=== PATIENT | male | born 1970 | race Caucasian/White ===

== ENCOUNTER 2018-03-03 03:10 | Emergency (ER) | payer OTHER ==
[2018-03-03] MEDS ORDERED: ONDANSETRON 4 MG/2 ML VIAL IVP ONE (03:18)
[2018-03-03] MEDS ORDERED: KETOROLAC 30 MG/1 ML SDV IVP ONE (03:18)
[2018-03-03] MEDS ORDERED: NS 1,000 ML IV ONE ×2 (03:18)
[2018-03-03] MEDS ORDERED: HYDROmorphONE/DILAUDID 2 MG/ML INJ IVP ONE (03:22)
[2018-03-03] MEDS ORDERED: HYDROmorphONE/DILAUDID 1 MG/ML INJ ONE (03:23)
--- NOTE | 2018-03-03 03:24 | EDPHY ---
H & P Stated Complaint: LUQ pain-L back Time Seen by Provider: 03/03/18 03:12 HPI/ROS: HPI The patient presents with left-sided upper abdominal and back pain which began at 1:45 a.m. And awoke him from sleep. The pain is severe, achy in nature, does not radiate, is associated with feeling that he needs to have a bowel movement. He does not have any nausea or vomiting. He has no prior history of similar. He does have a history of a left-sided back injury of some sort. REVIEW OF SYSTEMS Constitutional: No fever, no chills. Eyes: No discharge. ENT: No sore throat. Cardiovascular: No chest pain, no palpitations. Respiratory: No cough, no shortness of breath. Gastrointestinal: No abdominal pain, no vomiting. Genitourinary: No hematuria. Musculoskeletal: No back pain. Skin: No rashes. Neurological: No headache. PMHx: Healthy Soc Hx: Lives at home PHYSICAL General Appearance: Alert, uncomfortable appearing Eyes: Pupils equal and round no pallor or injection ENT, Mouth: Mucous membranes moist Respiratory: There are no retractions, lungs are clear to auscultation Cardiovascular: Regular rate and rhythm Gastrointestinal: Abdomen is soft and non-tender, no masses, bowel sounds normal Neurological: A&O, moves all extremities Skin: Warm and dry, no rashes Musculoskeletal: Neck is supple non tender Extremities: symmetrical, full range of motion Psychiatric: Patient is oriented X 3, there is no agitation Source: Patient Exam Limitations: No limitations - Personal History Current Tetanus Diphtheria and Acellular Pertussis (TDAP): Yes - Medical/Surgical History Hx Asthma: No Hx Chronic Respiratory Disease: No Hx Diabetes: No Hx Cardiac Disease: No Hx Renal Disease: No Hx Cirrhosis: No Hx Alcoholism: No Hx HIV/AIDS: No Hx Splenectomy or Spleen Trauma: No Other PMH: ortho surgeries - Social History Smoking Status: Never smoked Constitutional: Initial Vital Signs Temperature (C) 36.5 C 03/03/18 03:14 Heart Rate 64 03/03/18 03:14 Respiratory Rate 16 03/03/18 03:14 Blood Pressure 157/108 H 03/03/18 03:14 O2 Sat (%) 99 03/03/18 03:14 O2 Delivery Mode Room Air Allergies/Adverse Reactions: No Known Allergies Allergy (Unverified 03/03/18 03:13) Home Medications: Medication Instructions Recorded Tamsulosin HCl [Flomax 0.4 MG (*)] 0.4 mg PO DAILY #10 cap 03/03/18 oxyCODONE HCL/ACETAMINOPHEN 1 each PO Q6H PRN #8 tablet 03/03/18 [Percocet 5-325 mg Tablet] Medical Decision Making - Diagnostics Imaging Results: CT abdomen pelvis without IV contrast demonstrates left-sided ureterolithiasis with hydroureter and hydronephrosis, discussed with Dr. Winkler. Imaging: Discussed imaging studies w/ callisthenics instructor Radiologist, I viewed and interpreted images myself Differential Diagnosis: 47-year-old male with left-sided abdominal and flank pain for the last 1 hr. Differential diagnosis includes ureterolithiasis, pyelonephritis, pancreatitis. In the emergency department, patient received IV fluids, pain medication with nearly complete resolution in his symptoms. Labs were checked and did reveal hematuria, thus CT scan of his abdomen pelvis was ordered which did demonstrate a 4 mm distal ureteral kidney stone. I feel this is likely the cause of his symptoms. He felt better while in the emergency department. He was counseled on ureterolithiasis. He will be discharged home. - Data Points Laboratory Results: Laboratory Results 03/03/18 03:20 03/03/18 03:20 Medications Given: Discontinued Medications Hydromorphone HCl (Dilaudid) 1 mg IVP EDNOW ONE Stop: 03/03/18 03:23 Last Admin: 03/03/18 03:31 Dose: 1 mg Sodium Chloride (Ns) 1,000 mls @ 0 mls/hr IV EDNOW ONE; Wide Open PRN Reason: Protocol Stop: 03/03/18 03:19 Last Admin: 03/03/18 03:28 Dose: 1,000 mls Sodium Chloride (Ns) 1,000 mls @ 0 mls/hr IV EDNOW ONE; Wide Open PRN Reason: Protocol Stop: 03/03/18 03:19 Last Admin: 03/03/18 03:32 Dose: 1,000 mls Ketorolac Tromethamine (Toradol) 15 mg IVP EDNOW ONE Stop: 03/03/18 03:19 Last Admin: 03/03/18 03:27 Dose: 15 mg Ondansetron HCl (Zofran) 4 mg IVP EDNOW ONE Stop: 03/03/18 03:19 Last Admin: 03/03/18 03:28 Dose: 4 mg Ondansetron HCl (Zofran Odt 4 Mg Prepack#2) 1 btl TAKEHOME EDNOW ONE Stop: 03/03/18 04:32 Last Admin: 03/03/18 04:40 Dose: 1 btl Oxycodone/Acetaminophen (Percocet 5/325mg Prepack#4) 1 btl TAKEHOME EDNOW ONE Stop: 03/03/18 04:32 Last Admin: 03/03/18 04:39 Dose: 1 btl Departure - Departure Disposition: Home, Routine, Self-Care Clinical Impression: Ureterolithiasis Condition: Good Instructions: Oxycodone/Acetaminophen (By mouth), Ondansetron (By mouth), Tamsulosin (By mouth), Kidney Stones (ED), How to Strain Your Urine (ED) Additional Instructions: 1. Take Ibuprofen or Motrin 600 mg by mouth three times a day. 2. Percocet as needed for severe pain 3. Flomax as directed 4. Zofran as needed for nausea 5. Strain urine as directed 6. Return to the Emergency Department for intractable pain, fever or vomiting. 7. Followup with the urologist you have been referred to for unimproved symptoms. Referrals: Brian Galeano MD [Medical Doctor] - As per Instructions Prescriptions: oxyCODONE HCL/ACETAMINOPHEN [Percocet 5-325 mg Tablet] 1 each PO Q6H PRN #8 tablet PRN Reason: Pain, Breakthrough Tamsulosin HCl [Flomax 0.4 MG (*)] 0.4 mg PO DAILY #10 cap
[2018-03-03 03:27] LABS: PLATELET COUNT 274 10^3/uL (150-400)
[2018-03-03] MEDS ORDERED: ONDANSETRON 4MG PREPACK#2 BTL TAKEHOME ONE (04:31)
[2018-03-03] MEDS ORDERED: OXYCODONE/APAP 5/325MG PREPACK#4 BTL TAKEHOME ONE (04:31)
[2018-03-03 04:34] VITALS: BP 137/87
== END 2018-03-03 05:07 | disposition home or self-care (01) ==
DX: N20.1 Calculus of ureter (principal); E86.9 Volume depletion, unspecified
CPT/HCPCS: 96374; J1170; J1885; J2405